=== PATIENT | female | born 1985 | race Asian ===

== ENCOUNTER 2017-07-26 12:23 | Emergency (ER) | payer OTHER ==
[~2017-07-26] VITALS: Ht 152.4 cm; Wt 76.2 kg
[2017-07-26 13:21] VITALS: BP 158/93; TEMP 98.8
== END 2017-07-26 13:27 | disposition home or self-care (01) ==
LOC: ED 12:23
DX: M79.1 Myalgia (principal)
CPT/HCPCS: 99282

== ENCOUNTER 2017-09-17 11:01 | Emergency (ER) | payer OTHER ==
[~2017-09-17] VITALS: Ht 162.6 cm; Wt 95.3 kg
[2017-09-17 15:48] LABS: PLATELET COUNT 330 K/uL (152-353)
[2017-09-17 15:56] LABS: POTASSIUM 3.6 mmol/L (3.6-5.2)
[2017-09-17 16:36] VITALS: BP 146/78; TEMP 98.8
== END 2017-09-17 16:37 | disposition home or self-care (01) ==
LOC: ED 11:01
PROVIDERS: Specialist
DX: B34.9 Viral infection, unspecified (principal); E86.0 Dehydration
CPT/HCPCS: 36415; 80053; 81000; 85027; 86308; 87081; 87804; 87880; 96360; 99284; J3411; J3475; J3490

== ENCOUNTER 2019-04-22 20:05 | Emergency (ER) | payer OTHER ==
[~2019-04-22] VITALS: Ht 152.4 cm; Wt 82.6 kg
[2019-04-22] MEDS ORDERED: AMOXICILLIN PO (20:51)
[2019-04-22 21:56] VITALS: BP 147/79; TEMP 97.3
== END 2019-04-22 21:56 | disposition home or self-care (01) ==
LOC: ED 20:05
DX: J02.9 Acute pharyngitis, unspecified (principal); H92.03 Otalgia, bilateral; R52 Pain, unspecified
CPT/HCPCS: 87502; 87651; 99281

== ENCOUNTER 2020-03-08 15:40 | Emergency (ER) | payer OTHER ==
[~2020-03-08] VITALS: Ht 152.4 cm; Wt 82.6 kg
[~2020-03-08 15:40] MED LIST: AMOXICILLIN PO
[2020-03-08 16:47] LABS: PLATELET COUNT 395 K/uL (152-353)
[2020-03-08 16:58] LABS: POTASSIUM 4.1 mmol/L (3.6-5.2)
[2020-03-08 17:40] VITALS: BP 162/79; TEMP 98.8
== END 2020-03-08 17:40 | disposition home or self-care (01) ==
LOC: ED 15:40
PROVIDERS: Hospitalist
DX: J06.9 Acute upper respiratory infection, unspecified (principal); J02.9 Acute pharyngitis, unspecified; Z20.828 Contact with and (suspected) exposure to other viral communicable diseases
CPT/HCPCS: 36415; 80048; 85027; 87502; 87635; 87651; 99283; U0003

== ENCOUNTER 2020-08-09 15:59 | Emergency (ER) | payer OTHER ==
[~2020-08-09] VITALS: Ht 152.4 cm; Wt 82.6 kg
[2020-08-09 16:15] VITALS: TEMP 98.7
[2020-08-09 16:56] LABS: PLATELET COUNT 397 K/uL (152-353)
[2020-08-09 17:01] LABS: POTASSIUM 3.8 mmol/L (3.6-5.2)
[2020-08-09 17:37] VITALS: BP 171/79
== END 2020-08-09 17:43 | disposition home or self-care (01) ==
LOC: ED 15:59
PROVIDERS: Hospitalist
DX: J32.8 Other chronic sinusitis (principal); R51.9 Headache, unspecified; G50.0 Trigeminal neuralgia
CPT/HCPCS: 36415; 80048; 85027; 96372; 99283; J1885; J2405; J2930

== ENCOUNTER 2021-09-09 15:06 | Emergency (ER) | payer OTHER ==
[~2021-09-09] VITALS: Ht 152.4 cm; Wt 89.8 kg
[2021-09-09 15:28] VITALS: TEMP 98.3
[2021-09-09 18:19] VITALS: BP 126/74
== END 2021-09-09 18:19 | disposition home or self-care (01) ==
LOC: ED 15:06
DX: R10.13 Epigastric pain (principal); R10.84 Generalized abdominal pain; M79.7 Fibromyalgia
CPT/HCPCS: 81000; 96372; 99283; J1885

== ENCOUNTER 2022-10-31 09:34 | Emergency (ER) | payer OTHER ==
[~2022-10-31] VITALS: Ht 152.4 cm; Wt 86.6 kg
[2022-10-31 10:39] LABS: PLATELET COUNT 365 K/uL (152-353)
[2022-10-31 10:43] LABS: POTASSIUM 4.4 mmol/L (3.6-5.2)
[2022-10-31 11:23] VITALS: BP 138/74; TEMP 98.8
== END 2022-10-31 11:23 | disposition home or self-care (01) ==
LOC: ED 09:34
PROVIDERS: Emergency Medicine Emergency Medical Services
DX: I10 Essential (primary) hypertension (principal); S29.011A Strain of muscle and tendon of front wall of thorax, initial encounter; X50.3XXA Overexertion from repetitive movements, initial encounter; X50.1XXA Overexertion from prolonged static or awkward postures, initial encounter; Y92.238 Other place in hospital as the place of occurrence of the external cause
CPT/HCPCS: 36415; 80048; 81025; 83735; 84484; 85027; 85379; 93005; 99284

== ENCOUNTER 2022-11-01 11:36 | Outpatient (CLI) | payer OTHER | END 2022-11-01 19:20 | disposition home or self-care (01) | LOC: RESP 11:36 | PROVIDERS: ATTEND Nurse Practitioner Family | DX: R00.2 Palpitations (principal) | CPT/HCPCS: 93225 ==